=== PATIENT | female | born 1975 | race Two or more races ===

== ENCOUNTER 2016-09-01 13:56 | Emergency (ER) | payer BC, MEDICAID ==
[~2016-09-01] VITALS: Ht 157.5 cm; Wt 56.7 kg
[2016-09-01 15:10] LABS: Basophils # (auto) 0 uL; Basophils % (auto) 0.6 % (0.0-2.0); DEFINITIVE VIEW TRANSMISSION; Eosinophils # (auto) 0.3 uL; Eosinophils % (auto) 3.6 % (0.0-7.0); Hematocrit 36.8 % (36.0-46.0); Hemoglobin 12.3 g/dL (12.2-16.2); Lymphocytes # (auto) 1.3 uL; Lymphocytes % (auto) 17.5 % (10.0-50.0); Mean Corpuscular Hemoglobin 27.8 pg (28.0-32.0); Mean Corpuscular Hgb Conc. 33.5 g/dL (32.0-36.0); Mean Platelet Volume 9.3 fL (7.4-10.4); Monocytes # (auto) 0.4 uL; Monocytes % (auto) 5.4 % (0.0-12.0); Neutrophils # (auto) 5.4 uL; Neutrophils % (auto) 72.9 % (37.0-80.0); Platelet Count (auto) 310 10^3/uL (140-450); White Blood Cell 7.3 10^3/uL (4.4-10.8)
[2016-09-01 15:13] LABS: Red Cell Distribution Width 23.3 % (11.6-16.0)
[2016-09-01 15:28] LABS: Albumin 4.1 g/dL (3.4-5.0); BUN/Creatinine Ratio 18.2; Bilirubin, Total 0.2 mg/dL (0.2-1.0); Calcium 9.5 mg/dL (8.5-10.1); Potassium 3.8 mmol/L (3.5-5.1); Total Protein 7.8 g/dL (6.4-8.2)
[2016-09-01 15:54] LABS: Anisocytosis Moderate; Platelet Estimate Adequate
[2016-09-01] MEDS ORDERED: HYDROmorphone HCL 2 MG/ML VL IV ONE (17:00)
[2016-09-01] MEDS ORDERED: FLEET ENEMA(ADULT) 135 ML PR ONE ×2 (17:00)
[2016-09-01] MEDS ORDERED: SODIUM CHLORIDE 0.9% 1,000 ML IV ONE (17:00)
[2016-09-01] MEDS ORDERED: ONDANSETRON HCL 4 MG/2 ML VIAL IV ONE (17:15)
[2016-09-01] MEDS ORDERED: LORazepam 2MG/ML-1ML VIAL IV ONE (18:00)
[2016-09-01 18:36] VITALS: BP 116/72
== END 2016-09-01 19:01 | disposition home or self-care (01) ==
LOC: ER 14:02
DX: K59.03 Drug induced constipation (principal); T50.7X5A Adverse effect of analeptics and opioid receptor antagonists, initial encounter; Z88.6 Allergy status to analgesic agent; Z90.710 Acquired absence of both cervix and uterus; Y93.89 Activity, other specified; Y99.8 Other external cause status; Y92.89 Other specified places as the place of occurrence of the external cause
CPT/HCPCS: 36415; 74000; 80053; 85025; 96361; 96374; 96375; 99285; J1170; J2060; J2405; J7030

== ENCOUNTER 2024-01-08 17:38 | Emergency (ER) | payer BC ==
[~2024-01-08] VITALS: Ht 157.5 cm; Wt 72.5 kg
[2024-01-08 20:38] VITALS: TEMP 97.6
[2024-01-08] MEDS: KETOROLAC TROMETH 30 MG/ML 1ML VIAL IM ONE (21:01)
[2024-01-08] MEDS: MORPHINE SULFATE 4 MG/ML SYR/VIAL IM ONE (22:08)
[2024-01-08] MEDS: ONDANSETRON HCL 4 MG/2 ML VIAL IM ONE (22:08)
[2024-01-08 22:09] VITALS: O2SAT 100
[2024-01-08 22:34] VITALS: BP 112/59; PULSE 62; RESP 18
[2024-01-08] MEDS: CYCLOBENZAPRINE HCL 10 MG TAB PO ONE (22:34)
== END 2024-01-08 22:44 | disposition home or self-care (01) ==
LOC: ER 17:38
DX: G89.29 Other chronic pain (principal); M54.59 Other low back pain; M54.30 Sciatica, unspecified side; Z88.6 Allergy status to analgesic agent; Z90.710 Acquired absence of both cervix and uterus
CPT/HCPCS: 96372; 99284; J1885; J2270; J2405

== ENCOUNTER 2024-01-10 09:53 | Inpatient (IN) | payer BC, MEDICAID ==
[~2024-01-10] VITALS: Ht 157.5 cm; Wt 73.3 kg
[2024-01-10] MEDS ORDERED: MORPHINE SULFATE 4 MG/ML SYR/VIAL IM ONE (13:00)
[2024-01-10 13:45] VITALS: PULSE 74; RESP 12; O2SAT 100
[2024-01-10] MEDS: MORPHINE SULFATE 4 MG/ML SYR/VIAL IV ONE (14:05)
[2024-01-10 14:08] LABS: Basophils # (auto) 0 10 ^3/uL (0-0.2); Eosinophils # (auto) 0.1 10 ^3/uL (0-0.8); Eosinophils % (auto) 2.3 % (0.0-7.0); Hematocrit 38.1 % (36.0-46.0); Hemoglobin 12.9 g/dL (12.2-16.2); Lymphocytes # (auto) 1.5 10 ^3/uL (0.4-5.4); Mean Corpuscular Hemoglobin 29.8 pg (28.0-32.0); Mean Corpuscular Hgb Conc. 33.8 g/dL (32.0-36.0); Mean Corpuscular Volume 88.3 fL (80.0-100.0); Monocytes # (auto) 0.2 10 ^3/uL (0-1.3); Monocytes % (auto) 4.9 % (0.0-12.0); Neutrophils # (auto) 2.8 10 ^3/uL (1.6-8.6); Neutrophils % (auto) 59.8 % (37.0-80.0); Nucleated Red Blood Cells % 0.1 %; Red Blood Cells 4.32 10^6/uL (4.0-5.20); Red Cell Distribution Width 13.7 % (11.8-14.3); White Blood Cell 4.7 10^3/uL (4.4-10.8)
[2024-01-10 14:20] LABS: Chloride 106 mmol/L (98-107); Potassium 3.5 mmol/L (3.5-5.1); Sodium 143 mmol/L (136-145)
[2024-01-10 14:21] LABS: Anion Gap 10 (5-15); Calcium 10.3 mg/dL (8.7-10.4); Carbon Dioxide 27 mmol/L (20-30)
[2024-01-10 14:26] LABS: BUN/Creatinine Ratio 11.4 (10.0-20.0); Blood Urea Nitrogen 9 mg/dL (9-23); Glucose 91 mg/dL (74-106)
[2024-01-10] MEDS ORDERED: DOCUSATE SOD 100 MG CAP PO PRN (15:15)
[2024-01-10] MEDS ORDERED: NITROGLYCERIN 0.4 MG SL TAB SL PRN (15:15)
[2024-01-10] MEDS: SODIUM CHLORIDE 0.9% 1,000 ML IV SCH (15:38)
[2024-01-10] MEDS: MORPHINE SULFATE INJ 2 MG/ml SYRG IV PRN (16:27)
[2024-01-10] MEDS: PIPERACILLIN-TAZOB 3.375GM 100 ML IV ONE (17:10)
[2024-01-10] MEDS ORDERED: PIPERACILLIN-TAZOB 3.375GM 100 ML IV SCH (18:00)
[2024-01-10] MEDS: GABAPENTIN 100 MG CAP PO SCH (19:46)
[2024-01-10] MEDS: CYCLOBENZAPRINE HCL 10 MG TAB PO PRN (19:46)
[2024-01-10] MEDS: ONDANSETRON HCL 4 MG/2 ML VIAL IV PRN (19:46)
[2024-01-11] VITALS (9 sets, daily range): BP systolic 95–105; BP diastolic 6–71; PULSE 64–80; RESP 16–19; TEMP 97.7–98.1; O2SAT 97–98
[2024-01-11] MEDS: PIPERACILLIN-TAZOB 3.375GM 100 ML IV SCH (00:43)
[2024-01-11] MEDS ORDERED: CYCL-839 PO (03:19)
[2024-01-11] MEDS ORDERED: DULO60CA41 PO (03:19)
[2024-01-11] MEDS ORDERED: GABA-339 PO (03:19)
[2024-01-11 05:58] LABS: Basophils # (auto) 0 10 ^3/uL (0-0.2); Eosinophils # (auto) 0.1 10 ^3/uL (0-0.8); Eosinophils % (auto) 4.1 % (0.0-7.0); Hemoglobin 12.1 g/dL (12.2-16.2); Lymphocytes # (auto) 1.6 10 ^3/uL (0.4-5.4); Lymphocytes % (auto) 44.6 % (10.0-50.0); Mean Corpuscular Hemoglobin 30.1 pg (28.0-32.0); Mean Corpuscular Hgb Conc. 33.7 g/dL (32.0-36.0); Mean Corpuscular Volume 89.4 fL (80.0-100.0); Monocytes # (auto) 0.3 10 ^3/uL (0-1.3); Monocytes % (auto) 7.7 % (0.0-12.0); Neutrophils # (auto) 1.5 10 ^3/uL (1.6-8.6); Neutrophils % (auto) 42.6 % (37.0-80.0); Nucleated Red Blood Cells % 0.1 %; Red Blood Cells 4.02 10^6/uL (4.0-5.20); Red Cell Distribution Width 13.9 % (11.8-14.3); White Blood Cell 3.5 10^3/uL (4.4-10.8)
[2024-01-11 06:18] LABS: Alanine Aminotransferase 25 U/L (7-40); Albumin 4.1 g/dL (3.2-4.8); Alkaline Phosphatase 62 U/L (46-116); Anion Gap 6 (5-15); Aspartate Aminotransferase 24 U/L (13-40); Blood Urea Nitrogen 9 mg/dL (9-23); Calcium 9.8 mg/dL (8.7-10.4); Carbon Dioxide 29 mmol/L (20-30); Chloride 109 mmol/L (98-107); Glucose 86 mg/dL (74-106); Potassium 4.1 mmol/L (3.5-5.1); Sodium 144 mmol/L (136-145)
[2024-01-11 06:19] LABS: Bilirubin, Total 0.4 mg/dL (0.2-1.0); Total Protein 6.1 g/dL (5.7-8.2)
[2024-01-11] MEDS: LORazepam 2MG/ML-1ML VIAL IV ONE (13:22)
[2024-01-12 01:00] VITALS: BP 105/63; PULSE 96; RESP 18; O2SAT 97
[2024-01-12 05:00] VITALS: BP 92/52; PULSE 58; RESP 20; TEMP 97.6; O2SAT 99
[2024-01-12 08:00] VITALS: PULSE 69; RESP 19; O2SAT 95
[2024-01-12] MEDS ORDERED: CARI-277 PO (09:03)
[2024-01-12 09:04] VITALS: BP 102/70; PULSE 69; RESP 19; TEMP 98.5; O2SAT 95
[2024-01-12] MEDS ORDERED: HYDR-4798 PO (09:04)
[2024-01-12 10:49] VITALS: BP 102/70; PULSE 69; RESP 19; TEMP 98.5; O2SAT 95
[2024-01-12 12:29] VITALS: BP 99/54; PULSE 87; RESP 20; TEMP 98.4; O2SAT 93
[2024-01-12] MEDS ORDERED: PIPERACILLIN-TAZOB 3.375GM 100 ML IV SCH (14:00)
== END 2024-01-12 13:45 | disposition home or self-care (01) | DRG 532 ==
LOC: ER 09:53 → OVERFLOW 15:17 → CENTRAL 23:28
PROVIDERS: ADMIT Nurse Practitioner Family; ATTEND Family Medicine
DX: N83.202 Unspecified ovarian cyst, left side (principal); K56.7 Ileus, unspecified; M96.1 Postlaminectomy syndrome, not elsewhere classified; K52.9 Noninfective gastroenteritis and colitis, unspecified; E11.9 Type 2 diabetes mellitus without complications; Z88.6 Allergy status to analgesic agent; Z90.710 Acquired absence of both cervix and uterus; Z98.1 Arthrodesis status; Z79.899 Other long term (current) drug therapy; Z83.3 Family history of diabetes mellitus; Z87.891 Personal history of nicotine dependence
CPT/HCPCS: 36415; 72131; 72148; 74176; 76856; 80048; 80053; 82670; 83001; 85025; 96361; 96365; 96375; 96376; 97110; 97116; 97163; 97530; G0378; J2405; J2543

== ENCOUNTER 2024-03-14 15:31 | Emergency (ER) | payer MEDICAID ==
[~2024-03-14] VITALS: Ht 157.5 cm; Wt 70.9 kg
[~2024-03-14 15:31] MED LIST: CARI-277 PO; CYCL-839 PO; DULO60CA41 PO; GABA-339 PO; HYDR-4798 PO
[2024-03-14 15:48] VITALS: BP 111/70; PULSE 99; RESP 16; O2SAT 100
[2024-03-14 17:08] LABS: Urine Bacteria None Seen /hpf (None Seen)
[2024-03-14 17:24] LABS: Basophils # (auto) 0 10 ^3/uL (0-0.2); Basophils % (auto) 0.5 % (0.0-2.0); Eosinophils # (auto) 0.1 10 ^3/uL (0-0.8); Eosinophils % (auto) 1.9 % (0.0-7.0); Hematocrit 42.6 % (36.0-46.0); Hemoglobin 14.5 g/dL (12.2-16.2); Lymphocytes # (auto) 1.8 10 ^3/uL (0.4-5.4); Lymphocytes % (auto) 32.5 % (10.0-50.0); Mean Corpuscular Hemoglobin 30.4 pg (28.0-32.0); Mean Corpuscular Hgb Conc. 33.9 g/dL (32.0-36.0); Mean Corpuscular Volume 89.6 fL (80.0-100.0); Monocytes # (auto) 0.3 10 ^3/uL (0-1.3); Monocytes % (auto) 5.7 % (0.0-12.0); Neutrophils # (auto) 3.3 10 ^3/uL (1.6-8.6); Neutrophils % (auto) 59.4 % (37.0-80.0); Nucleated Red Blood Cells % 0.1 %; Platelet Count (auto) 307 10^3/uL (140-450); Red Blood Cells 4.76 10^6/uL (4.0-5.20); Red Cell Distribution Width 14.5 % (11.8-14.3); White Blood Cell 5.6 10^3/uL (4.4-10.8)
[2024-03-14 17:28] LABS: Alanine Aminotransferase 37 U/L (7-40); Alkaline Phosphatase 81 U/L (46-116)
[2024-03-14 17:29] LABS: Anion Gap 7 (5-15); Aspartate Aminotransferase 30 U/L (13-40); Bilirubin, Total 0.3 mg/dL (0.2-1.0); Blood Urea Nitrogen 12 mg/dL (9-23); Carbon Dioxide 27 mmol/L (20-31); Chloride 107 mmol/L (98-107); Glucose 91 mg/dL (74-106); Lipase 69 U/L (12-53); Potassium 4.4 mmol/L (3.5-5.1); Sodium 141 mmol/L (136-145); Total Protein 7.7 g/dL (5.7-8.2)
[2024-03-14 17:41] LABS: Urine Blood Negative /uL (Negative); Urine Clarity Clear (Clear); Urine Color Yellow (Yellow); Urine Mucus FEW (None Seen); Urine Protein, UAD Negative (Negative); Urine Specific Gravity 1.025 (1.001-1.035); Urine Urobilinogen Normal (Negative); Urine WBC 1 /hpf (0 - 5)
[2024-03-14] MEDS ORDERED: HYDR-4902 PO (18:51)
== END 2024-03-14 19:26 | disposition home or self-care (01) ==
LOC: ER 15:31
DX: R10.32 Left lower quadrant pain (principal); Z90.710 Acquired absence of both cervix and uterus; Z90.49 Acquired absence of other specified parts of digestive tract; Z98.890 Other specified postprocedural states; Z88.6 Allergy status to analgesic agent; Z79.899 Other long term (current) drug therapy
CPT/HCPCS: 36415; 74176; 80053; 81001; 83690; 85025

== ENCOUNTER 2024-04-08 10:06 | Emergency (ER) | payer MEDICAID ==
[~2024-04-08] VITALS: Ht 157.5 cm; Wt 70.0 kg
[~2024-04-08 10:06] MED LIST changes: +HYDR-4902 PO
[2024-04-08 10:39] VITALS: BP 108/73; PULSE 94; RESP 18; TEMP 97.8; O2SAT 99
[2024-04-08] MEDS ORDERED: HYDR-4902 PO (11:49)
== END 2024-04-08 11:55 | disposition home or self-care (01) ==
LOC: ER 10:06
DX: S22.32XA Fracture of one rib, left side, initial encounter for closed fracture (principal); Z90.49 Acquired absence of other specified parts of digestive tract; Z90.710 Acquired absence of both cervix and uterus; Z79.899 Other long term (current) drug therapy; Z88.6 Allergy status to analgesic agent; W18.39XA Other fall on same level, initial encounter; Y93.89 Activity, other specified; Y92.89 Other specified places as the place of occurrence of the external cause; Y99.8 Other external cause status
CPT/HCPCS: 71101

== ENCOUNTER 2024-04-16 11:48 | Emergency (ER) | payer MEDICAID ==
[~2024-04-16] VITALS: Ht 157.5 cm; Wt 70.0 kg
[2024-04-16] MEDS: KETOROLAC TROMETH 60MG/2ML VIAL IM ONE (12:00)
--- NOTE | 2024-04-16 12:03 | ED.PDOC ---
History of Present Illness HPI Comments 48-year-old female presents with a chief complaint of request for pain management. Patient reports that she has a pinched nerve in her back and is awaiting back surgery. Patient is requesting pain management. No other symptoms or modifying factors present at this time. Time Seen by MD: 11:57 Primary Care Provider: YAAKOV Cooper Notes: Medications, Allergies Allergies: Coded Allergies: Ibuprofen (Verified Allergy, Severe, 09/01/16) Home Meds Active Scripts Hydrocodone-Acetaminophen (Hydrocodone Bitartrate/AC 5-325 mg) 1 Tab Tab, 1 TAB PO Q6HP PRN for 7 Days, #28 TAB 0 Refills Prov:SARITHA SHEA EMBROIDERY ASSISTANT 04/08/24 Hydrocodone-Acetaminophen (Hydrocodone Bitartrate/AC 5-325 mg) 1 Tab Tab, 1 TAB PO Q8HP PRN for 5 Days, #15 TAB Prov:JIMMY KWAN MD 03/14/24 Hydrocodone-Acetaminophen (Hydrocodone Bitartrate/AC 10-325 mg) 1 Tab Tab, 1 TAB PO TID PRN, #60 TAB Prov:WILLIE VÁSQUEZ MD 01/12/24 Reported Medications Carisoprodol (Soma) 350 Mg Tab, 350 MG PO TID, #60 TAB 01/12/24 Duloxetine Hcl (Cymbalta) 60 Mg Cap, 1 CAP PO DAILY, #90 CAP 3 Refills 01/11/24 Cyclobenzaprine Hcl (Cyclobenzaprine Hcl) 10 Mg Tab, 10 MG PO PRN, TAB 01/11/24 Gabapentin (Gabapentin) 600 Mg Tab, 600 MG PO BID for 30 Days, MG 01/11/24 Information Source: Patient Severity: Moderate Timing: Days Duration: Since onset Prehospital treatment: None Past Medical History PAST MEDICAL HISTORY: Denies Surgical History: Appendectomy, 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 Family History Family History: Unobtainable Social History Smoker: Non-Smoker Alcohol: Denies ETOH Use Drugs: Denies Drug Use Lives In: Home Constitutional: denies: chills, diaphoresis, fatigue, fever, malaise, sweats, weakness, others EENTM: denies: blurred vision, double vision, ear bleeding, ear discharge, ear drainage, ear pain, ear ringing, eye pain, eye redness, hearing loss, mouth pain, mouth swelling, nasal discharge, nose bleeding, nose congestion, nose pain, photophobia, tearing, throat pain, throat swelling, voice changes, others Respiratory: denies: cough, hemoptysis, orthopnea, SOB at rest, shortness of breath, SOB with excertion, stridor, wheezing, others Cardiovascular: denies: chest pain, dizzy spells, diaphoresis, Dyspnea on exertion, edema, irregular heart beat, left arm pain, lightheadedness, palpitations, PND, syncope, others Gastrointestinal: denies: abdomen distended, abdominal pain, blood streaked bowels, constipated, diarrhea, dysphagia, difficulty swallowing, hematemesis, melena, nausea, poor appetite, poor fluid intake, rectal bleeding, rectal pain, vomiting, others Genitourinary: denies: abnormal vagina bleeding, burning, dyspareunia, dysuria, flank pain, frequency, hematuria, incontinence, pain, , vagina discharge, urgency, others Neurological: denies: dizziness, fainting, headache, left sided numbness, left sided weakness, numbness, paresthesia, pre-existing deficit, right sided numbness, right sided weakness, seizure, speech problems, tingling, tremors, weakness, others Musculoskeletal: reports: muscle pain; denies: back pain, gout, joint pain, joint swelling, muscle stiffness, neck pain, others Integumetry: denies: bruises, change in color, change in hair/nails, dryness, laceration, lesions, lumps, rash, wounds, others Allergic/Immunocompromised: denies: Difficulty Healing, Frequent Infections, Hives, Itching, others Hematologic/Lymphatic: denies: anemia, blood clots, easy bleeding, easy bruising, swollen glands, others Endocrine: denies: excessive hunger, excessive sweating, excessive thirst, excessive urination, flushing, intolerance to cold, intolerance to heat, unexplained weight gain, unexplained weight loss, others Psychiatric: denies: anxiety, bipolar disorder, depression, hopeless, panic disorder, schizophrenia, sleepless, suicidal, others All Other Systems: Reviewed and Negative Physical Exam General Appearance: Mild Distress, Normal HEENT: Normal ENT Inspection, Pharynx Normal, TMs Normal Neck: Full Range of Motion, Non-Tender, Normal, Normal Inspection Respiratory: Chest Non-Tender, Lungs Clear, No Accessory Muscle Use, No Respiratory Distress, Normal Breath Sounds Cardiovascular: No Edema, No JVD, No Murmur, No Gallop, Normal Peripheral Pulses, Regular Rate/Rhythm Breast Exam: Deferred Gastrointestinal: No Organomegaly, Non Tender, No Pulsatile Mass, Normal Bowel Sounds, Soft Genitalia: Deferred Pelvic: Deferred Rectal: Deferred Extremities: No calf tenderness, Normal capillary refill, Normal inspection, Normal range of motion, Non-tender, No pedal edema Musculoskeletal : Apperance: Normal Neurologic: Alert, rotary cutter operator II-XII nml as Tested, No Motor Deficits, Normal Affect, Normal Mood, No Sensory Deficits Cerebellar Function: NOT DONE Reflexes: NOT DONE Skin: Dry, Normal Color, Warm Peripheral Pulses: 3+ Radial (R), 3+ Radial (L) Lymphatic: No Adenopathy Was a procedure done? Was a procedure done?: No Differential Dx Considerations may include: Degenerative disc disease Muscle strain X-Ray, Labs, Meds, VS Vital Signs Date Time Temp Pulse Resp B/P (MAP) Pulse Ox O2 Delivery O2 Flow Rate FiO2 04/16/24 12:05 98.5 102 16 126/83 (97) 93 Patient alert pain Chronic symptoms. Vitals stable. Answering all questions, saturation pristine on room air. No leg swelling. Denies chest pain. No shortness a breath. Came in for pain medication. Heart rate on examination was within normal limits. She is nervous. She does complain of pain. She has pain medication at home. Reviewed her previous visit. Does not meet any criteria. No leg discoloration. No accessory muscle use. She has scheduled surgery for her back. She was given pain medication. Explained to the patient. Was told to follow up with her primary care physician. Was told to come back if there is any problem. Time of 1ST Reevaluation: 12:27 Reevaluation 1ST: Improved Patient Education/Counseling: Diagnosis, Treatment, Prognosis Family Education/Counseling: No Family Present Departure 1 Departure Time of Disposition: 12:51 Impression: Primary Impression: Acute exacerbation of chronic low back pain Disposition: 01 HOME / SELF CARE / HOMELESS Condition: Good Discharged With: Self Critical Care Note Critical Care Time?: No Stability Stability form required: No Heart Score Heart Score: Heart Score Response (Comments) Value History N/A 0 EKG N/A 0 Age N/A 0 Risk Factors N/A 0 Troponin N/A 0 Total 0 I personally scribed for ROXANE CASTILLO MD ([email or web address]) on 04/16/24 at 12:03. Electronically submitted by Carlos Manuel Brenner ([email or web address]). ROXANE CASTILLO MD Apr 16, 2024 12:03
[2024-04-16 13:03] VITALS: BP 106/68; PULSE 94; RESP 14; TEMP 97.6; O2SAT 95
[2024-04-16] MEDS: HYDROcodone-ACET 10/325MG TAB PO ONE (13:10)
== END 2024-04-16 13:19 | disposition home or self-care (01) ==
LOC: ER 11:57
DX: M54.50 Low back pain, unspecified (principal); G89.29 Other chronic pain; Z79.899 Other long term (current) drug therapy; Z88.6 Allergy status to analgesic agent; Z90.49 Acquired absence of other specified parts of digestive tract; Z90.710 Acquired absence of both cervix and uterus
CPT/HCPCS: J1885

== ENCOUNTER 2024-05-13 14:01 | Emergency (ER) | payer MEDICAID ==
[~2024-05-13] VITALS: Ht 157.5 cm; Wt 79.7 kg
[2024-05-13 14:10] VITALS: BP 101/57; PULSE 101; RESP 16; O2SAT 97
[2024-05-13] MEDS ORDERED: GABA300T4 PO (14:35)
[2024-05-13] MEDS ORDERED: PROM1SOL4 PO (14:35)
--- NOTE | 2024-05-13 14:36 | ED.PDOC ---
Musculoskeletal HPI Comments Patient presents with numbness tingling to the 1st 2nd and 3rd distal phalanx. Onto started weeks ago and symptoms worsened with movement. Patient reports as burning sensation. Currently taking 600 mg of gabapentin b.i.d. with some improvement. No other complaint or concern Also complains of a nonproductive cough x1 day Denies fevers chills night sweats unintentional weight loss Denies persistent chest pain, shortness of breath, leg swelling Denies history of asthma nor any breathing conditions Denies history of pneumonia Denies recent international travel Chief Complaint: Upper Extremity Time Seen by MD: 14:09 Primary Care Provider: YAAKOV Reviewed Notes: Nurses Notes, Medications, Allergies Allergies: Coded Allergies: Ibuprofen (Verified Allergy, Severe, 09/01/16) Home Meds Active Scripts Hydrocodone-Acetaminophen (Hydrocodone Bitartrate/AC 5-325 mg) 1 Tab Tab, 1 TAB PO Q6HP PRN for 7 Days, #28 TAB 0 Refills Prov:SARITHA SHEA ESTIMATOR PAPERBOARD BOXES 04/08/24 Hydrocodone-Acetaminophen (Hydrocodone Bitartrate/AC 5-325 mg) 1 Tab Tab, 1 TAB PO Q8HP PRN for 5 Days, #15 TAB Prov:JIMMY KWAN MD 03/14/24 Hydrocodone-Acetaminophen (Hydrocodone Bitartrate/AC 10-325 mg) 1 Tab Tab, 1 TAB PO TID PRN, #60 TAB Prov:WILLIE VÁSQUEZ MD 01/12/24 Reported Medications Carisoprodol (Soma) 350 Mg Tab, 350 MG PO TID, #60 TAB 01/12/24 Duloxetine Hcl (Cymbalta) 60 Mg Cap, 1 CAP PO DAILY, #90 CAP 3 Refills 01/11/24 Cyclobenzaprine Hcl (Cyclobenzaprine Hcl) 10 Mg Tab, 10 MG PO PRN, TAB 01/11/24 Gabapentin (Gabapentin) 600 Mg Tab, 600 MG PO BID for 30 Days, MG 01/11/24 Information Source: Patient Mode of Arrival: Ambulatory Past Medical History PAST MEDICAL HISTORY: Denies Surgical History: Appendectomy, 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 Family History Family History: Reviewed,noncontributory to illness, Unobtainable Social History Smoker: Non-Smoker Alcohol: Denies ETOH Use Drugs: Denies Drug Use Lives In: Home All Other Systems: Reviewed and Negative (Per HPI) Physical Exam General Appearance: No Apparent Distress, Normal HEENT: Normal ENT Inspection, Pharynx Normal, TMs Normal Neck: Full Range of Motion, Non-Tender, Normal, Normal Inspection Respiratory: Chest Non-Tender, Lungs Clear, No Accessory Muscle Use, No Respiratory Distress, Normal Breath Sounds Cardiovascular: No Edema, No JVD, No Murmur, No Gallop, Normal Peripheral Pulse s, Regular Rate/Rhythm Breast Exam: Deferred Gastrointestinal: No Organomegaly, Non Tender, No Pulsatile Mass, Normal Bowel Sounds, Soft Genitalia: Deferred Pelvic: Deferred Rectal: Deferred Extremities: No calf tenderness, Normal capillary refill, Normal inspection, Normal range of motion, Non-tender, No pedal edema Musculoskeletal : Apperance: Normal Neurologic: Alert, self 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 Was a procedure done?: No Differential Diagnosis EXT Differential Diagnosis: Other X-Ray, Labs, Meds, VS Vital Signs Date Time Temp Pulse Resp B/P (MAP) Pulse Ox O2 Delivery O2 Flow Rate FiO2 05/13/24 14:10 97.9 101 16 101/57 (72) 97 X-Ray, Labs, Meds, VS Comment After ROS physical examination no red flags. Patient advised symptoms do not represent a serious medical emergency. Symptomatic care provided. 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 Additional Impression: Cough Qualified Codes: R05.1 - Acute cough Disposition: 01 HOME / SELF CARE / HOMELESS Condition: Stable e-Prescriptions Gabapentin (Once-Daily) (Gabapentin) 300 Mg Tab 900 MG PO TID for 30 Days, #270 TAB 0 Refills Prov: SARITHA SHEA ESTIMATOR PAPERBOARD BOXES 05/13/24 Promethazine-Dm (Promethazine Dm 6.25-15 mg/5Ml) 1 Yarely Yarely 5 ML PO TID for 10 Days, #150 ML 0 Refills Prov: SARITHA SHEA ESTIMATOR PAPERBOARD BOXES 05/13/24 Discharged With: Self Critical Care Note Critical Care Time?: No Stability Stability form required: No Heart Score Heart Score: Heart Score Response (Comments) Value History N/A 0 EKG N/A 0 Age N/A 0 Risk Factors N/A 0 Troponin N/A 0 Total 0 SARITHA SHEA NP May 13, 2024 14:35
== END 2024-05-13 15:07 | disposition home or self-care (01) ==
LOC: ER 14:01
DX: G62.9 Polyneuropathy, unspecified (principal); Z79.899 Other long term (current) drug therapy; Z88.6 Allergy status to analgesic agent; Z90.49 Acquired absence of other specified parts of digestive tract; Z90.710 Acquired absence of both cervix and uterus

== ENCOUNTER 2024-12-31 01:26 | Emergency (ER) | payer MEDICAID ==
[~2024-12-31] VITALS: Ht 157.5 cm; Wt 76.8 kg
[~2024-12-31 01:26] MED LIST changes: +GABA300T4 PO; +PROM1SOL4 PO
--- NOTE | 2024-12-31 01:57 | ED.PDOC ---
Back pain HPI HPI Comments PT C/O 03/21 BACK PAIN TO LOWER BACK. PT EXPLAINS THAT SHE HAS HAD MULTIPLE SURGERIES ON HER BACK AND HAS CHRONIC BACK PAIN. PT HAS BEEN UNABLE TO SET UP AN APPOINTMENT WITH PAIN MANAGEMENT AND THIS MORNING HER PAIN HAS BECOME UNBEARABLE. PT A&OX4, VSS, RR EVEN AND UNLABORED ON RA. DENIES NUMBNESS, WEAKNESS, NEW INJURY, LOSS OF BOWEL BLADDER CONTROL, OR SADDLE ANESTHESIA. Time Seen by MD: 01:38 Primary Care Provider: YAAKOV Reviewed Notes: Nurses Notes, Medications, Allergies Allergies: Coded Allergies: Ibuprofen (Verified Allergy, Severe, 09/01/16) Home Meds Active Scripts Methylprednisolone (Medrol Dosepak) 4 Mg [place], 4 MG PO UD for 6 Days, #21 TAB UAD Prov:DENA CARTER FRONT OFFICE MEDICAL ASSISTANT 12/31/24 Gabapentin (Once-Daily) (Gabapentin) 300 Mg Tab, 900 MG PO TID for 30 Days, #270 TAB 0 Refills Prov:SARITHA SHEA NP 05/13/24 Promethazine-Dm (Promethazine Dm 6.25-15 mg/5Ml) 1 Yarely Yarely, 5 ML PO TID for 10 Days, #150 ML 0 Refills Prov:SARITHA SHEA HOT BILLET SHEAR OPERATOR 05/13/24 Hydrocodone-Acetaminophen (Hydrocodone Bitartrate/AC 5-325 mg) 1 Tab Tab, 1 TAB PO Q6HP PRN for 7 Days, #28 TAB 0 Refills Prov:SARITHA SHEA NP 04/08/24 Hydrocodone-Acetaminophen (Hydrocodone Bitartrate/AC 5-325 mg) 1 Tab Tab, 1 TAB PO Q8HP PRN for 5 Days, #15 TAB Prov:JIMMY KWAN MD 03/14/24 Hydrocodone-Acetaminophen (Hydrocodone Bitartrate/AC 10-325 mg) 1 Tab Tab, 1 TAB PO TID PRN, #60 TAB Prov:WILLIE VÁSQUEZ MD 01/12/24 Reported Medications Carisoprodol (Soma) 350 Mg Tab, 350 MG PO TID, #60 TAB 01/12/24 Duloxetine Hcl (Cymbalta) 60 Mg Cap, 1 CAP PO DAILY, #90 CAP 3 Refills 01/11/24 Cyclobenzaprine Hcl (Cyclobenzaprine Hcl) 10 Mg Tab, 10 MG PO PRN, TAB 01/11/24 Gabapentin (Gabapentin) 600 Mg Tab, 600 MG PO BID for 30 Days, MG 01/11/24 Information Source: Patient Past Medical History PAST MEDICAL HISTORY: Denies Surgical History: Appendectomy, 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 Family History Family History: Reviewed,noncontributory to illness, Unobtainable Social History Smoker: Non-Smoker Alcohol: Denies ETOH Use Drugs: Denies Drug Use Lives In: Home Constitutional: denies: chills, diaphoresis, fatigue, fever, malaise, sweats, weakness, others EENTM: denies: blurred vision, double vision, ear bleeding, ear discharge, ear drainage, ear pain, ear ringing, eye pain, eye redness, hearing loss, mouth pain, mouth swelling, nasal discharge, nose bleeding, nose congestion, nose pain, photophobia, tearing, throat pain, throat swelling, voice changes, others Respiratory: denies: cough, hemoptysis, orthopnea, SOB at rest, shortness of breath, SOB with excertion, stridor, wheezing, others Gastrointestinal: denies: abdomen distended, abdominal pain, blood streaked bowels, constipated, diarrhea, dysphagia, difficulty swallowing, hematemesis, melena, nausea, poor appetite, poor fluid intake, rectal bleeding, rectal pain, vomiting, others Genitourinary: denies: abnormal vagina bleeding, burning, dyspareunia, dysuria, flank pain, frequency, hematuria, incontinence, pain, , vagina discharge, urgency, others Neurological: denies: dizziness, fainting, headache, left sided numbness, left sided weakness, numbness, paresthesia, pre-existing deficit, right sided numbness, right sided weakness, seizure, speech problems, tingling, tremors, weakness, others Musculoskeletal: reports: back pain, joint pain; denies: gout, joint swelling, muscle pain, muscle stiffness, neck pain, others Integumetry: denies: bruises, change in color, change in hair/nails, dryness, laceration, lesions, lumps, rash, wounds, others Allergic/Immunocompromised: denies: Difficulty Healing, Frequent Infections, Hives, Itching, others Hematologic/Lymphatic: denies: anemia, blood clots, easy bleeding, easy bruising, swollen glands, others Endocrine: denies: excessive hunger, excessive sweating, excessive thirst, excessive urination, flushing, intolerance to cold, intolerance to heat, unexplained weight gain, unexplained weight loss, others Psychiatric: denies: anxiety, bipolar disorder, depression, hopeless, panic disorder, schizophrenia, sleepless, suicidal, others Physical Exam General Appearance: No Apparent Distress, Normal HEENT: Pharynx Normal Neck: Full Range of Motion, Non-Tender Respiratory: Lungs Clear, No Respiratory Distress, Normal Breath Sounds Cardiovascular: No Murmur, Normal Peripheral Pulses, Regular Rate/Rhythm Breast Exam: Deferred Gastrointestinal: Non Tender, Soft Genitalia: Deferred Pelvic: Deferred Rectal: Deferred Extremities: Normal capillary refill, Normal inspection, Normal range of motion, Non-tender, No pedal edema Musculoskeletal : Location: Bilateral Extremity Location: Back (MODERATE TENDERNESS PALPATED OVER LOWER BACK MUSCULATURE BILATERAL. TENDERNESS PALPATED OVER L1 THROUGH L3 LUMBAR SPINE WITHOUT CREPITUS OR STEP-OFFS. STRENGTH SENSORY MOTION INTACT NEGATIVE STRAIGHT LEG RAISE BILATERAL POSITIVE PEDAL PULSES) Apperance: Normal Neurologic: Alert, No Motor Deficits, Normal Affect, Normal Mood, No Sensory Deficits Cerebellar Function: Normal Reflexes: Normal Skin: Dry, Normal Color, Warm Lymphatic: No Adenopathy Was a procedure done? Was a procedure done?: No Back Pain Differential Dx Differential Diagnosis: Fracture, Musculoskeletal Pain, Strain X-Ray, Labs, Meds, VS Vital Signs Date Time Temp Pulse Resp B/P (MAP) Pulse Ox O2 Delivery O2 Flow Rate FiO2 12/31/24 02:58 83 15 99/67 12/31/24 02:55 98.5 83 12 99/ (78) 95 98.5 12/31/24 02:17 97.8 103 18 139/99 (112) 95 97.8 12/31/24 02:17 103 18 95 Room Air* 0 21 12/31/24 02:08 103 18 139/99 12/31/24 01:39 97.8 103 18 139/99 (112) 95 97.8 Current Medications Medications (Trade) Dose Ordered Sig/Nagi Route Start Time Stop Time Status Last Admin Dexamethasone Sodium Phosphate (Decadron Injection) 10 mg ONCE ONCE IM 12/31/24 02:00 12/31/24 02:01 DC 12/31/24 02:08 Morphine Sulfate 4 mg ONCE ONCE IM 12/31/24 02:00 12/31/24 02:01 DC 12/31/24 02:08 X-Ray, Labs, Meds, VS Comment Treated with Decadron 10 mg IM in morphine 4 mg IM reports improvement in pain requesting discharge at this time. We will trial of Medrol Dosepak advised to take medication as prescribed side effects discussed. Advised to follow up with her pain management as scheduled. Alternate between ice and heat. ER return precautions given increasing pain, weakness, numbness, loss of bowel bladder control or saddle anesthesia. Patient agrees with discharge plan of care indicates understanding. Time of 1ST Reevaluation: 01:57 Reevaluation 1ST: Unchanged Time of 2ND Reevaluation: 02:45 Reevaluation 2ND: Improved Patient Education/Counseling: Diagnosis, Treatment, Prognosis, Need For Follow Up Family Education/Counseling: Diagnosis, Treatment, Prognosis, Need For Follow Up SEPSIS Sepsis Screen Vital Signs Date Time Temp Pulse Resp B/P (MAP) Pulse Ox O2 Delivery O2 Flow Rate FiO2 12/31/24 02:58 83 15 99/67 12/31/24 02:55 98.5 83 12 99/67 (78) 95 98.5 12/31/24 02:17 97.8 103 18 139/99 (112) 95 97.8 12/31/24 02:17 103 18 95 Room Air* 0 21 12/31/24 02:08 103 18 139/99 12/31/24 01:39 97.8 103 18 139/99 (112) 95 97.8 Medications Medications Dose Ordered Sig/Nagi Route Start Time Stop Time Status Last Admin Dose Admin Dexamethasone Sodium Phosphate 10 mg ONCE ONCE IM 12/31/24 02:00 12/31/24 02:01 DC 12/31/24 02:08 Morphine Sulfate 4 mg ONCE ONCE IM 12/31/24 02:00 12/31/24 02:01 DC 12/31/24 02:08 Departure 1 Departure Time of Disposition: 02:45 Impression: Primary Impression: Acute exacerbation of chronic low back pain Disposition: 01 HOME / SELF CARE / HOMELESS Condition: Stable e-Prescriptions Methylprednisolone (Medrol Dosepak) 4 Mg [place] 4 MG PO UD for 6 Days, #21 TAB UAD Prov: DENA CARTER 12/31/24 Discharged With: Relative (Mother) Critical Care Note Critical Care Time?: No Stability Stability form required: No DENA CARTER 22, 2025 01:57
[2024-12-31] MEDS: MORPHINE SULFATE 4 MG/ML SYR/VIAL IM ONE (02:08)
[2024-12-31 02:17] VITALS: PULSE 103; RESP 18; O2SAT 95
[2024-12-31] MEDS ORDERED: METH4PAK PO (02:45)
[2024-12-31 02:55] VITALS: TEMP 98.5; O2SAT 95
[2024-12-31 02:58] VITALS: BP 99/67; PULSE 83; RESP 15
== END 2024-12-31 02:55 | disposition home or self-care (01) ==
LOC: ER 01:26
DX: G89.29 Other chronic pain (principal); Z90.710 Acquired absence of both cervix and uterus; Z90.49 Acquired absence of other specified parts of digestive tract; Z90.89 Acquired absence of other organs; Z88.6 Allergy status to analgesic agent; Z79.899 Other long term (current) drug therapy; Z79.52 Long term (current) use of systemic steroids
CPT/HCPCS: 96372; 99284; J1100; J2270

== ENCOUNTER 2025-05-31 15:32 | Emergency (ER) | payer MEDICAID ==
[~2025-05-31] VITALS: Ht 157.5 cm; Wt 68.3 kg
--- NOTE | 2025-05-31 15:56 | ED.PDOC ---
SOB-HPI HPI Comments HPI: Poor Historian. 49-year-old female presents to emergency department for evaluation of nonspecific cough with the associated wheezing and shortness of breath when she coughs. Symptoms has been going on for one-week. Patient has a associated generalized fatigue at nighttime with the these coughs. She has been using her inhaler at home frequently. Denies any fever nausea or vomiting abdominal pain chest pain or runny nose. Past Medical History: Asthma, chronic hip pain, Past Surgical History: Back Surgery REVIEW OF SYSTEMS: CONSTITUTIONAL: Denies acute: fever, diaphoresis, chills, HEAD: Denies acute: headache, photophobia Eyes: Denies acute: Double vision, vision loss, eye pain, eye discharge. EARS: Denies acute: tinnitus, hearing loss, ear discharge, ear pain, THROAT: Denies acute: sore throat, swelling, difficulty swallowing , pain with swallowing, change in voice. NECK: Denies acute: neck pain, neck swelling, stiff neck. HEART: Denies acute : chest pain, palpitations, LUNGS: Denies acute: hemoptysis ABDOMEN: Denies acute: abdominal pain, Nausea, Vomiting, diarrhea, melena , hematemesis, hematochezia SKIN: Denies acute: rash, redness, lesions, itchiness. EXTREMITIES: Denies acute: calf pain, numbness, tingling, weakness, denies pain in extremity. Denies acute: Low back pain. Neuro: Denies acute: focal neurological deficit, motor or sensory focal neurological deficit, tremors, seizure like activity, confusion, dizziness, change in mental status, loss of bowel or bladder function, cauda equina like symptoms. : Denies acute: dysuria, hematuria, flank pain, increase in urinary frequency. PSYCH: Denies acute: hallucination, suicidal ideation, homicidal ideation. FEMALE: Denies acute: abnormal vaginal bleeding, foul odor, unusual discharge. PHYSICAL EXAM: General: -----no---acute distress, awake and alert. Head: normocephalic, atraumatic. No raccoon's eyes, no cruz sign. Neck: supple, trachea is midline, no swelling. Throat: Normal phonation. Eyes:, no erythema, no purulent discharge, no proptosis, no icterus. Heart: regular rate, regular rhythm, no significant murmur appreciated. Lungs: no apparent respiratory distress, Able to speak in full sentences. slight b/l wheezing, mild rhonchi, no crackles. No stridors Abdomen: non tender to palpation, non distended, soft, no guarding, no rebound, + bowel sounds. Neuro: Awake, Alert, oriented to name, self, situation, follows commands GCS=15. Speech is normal. Skin: no petechia, no purpura, no cyanosis, non-pale, not jaundice. Lower extremities: --no - Pitting edema no deformity, no focal swelling, no calf TTP. Makes eye contact. moves all four extremities. Face: no apparent facial droop. Ambulating in the ED independently. ED COURSE: DISCLAIMER: This medical document was created using an electronic medical record system with voice recognition software and computerized dictation system. Although this document has been carefully reviewed, there might still be some phonetic and typographical errors. Occasional wrong-word or "sound-alike" substitutions may have occurred due to the inherent limitations of voice recognition software. These areas are purely typographical due to imperfections of the software programs and do not reflect any compromise in the patient's medical care. Please read the chart carefully and recognize, using context, where these substitutions have occurred. Chief Complaint: Shortness of Breath Time Seen by MD: 15:47 Primary Care Provider: YAAKOV Cooper notes: Allergies Information Source: Patient Mode of Arrival: Ambulatory Past Medical History PAST MEDICAL HISTORY: Denies Surgical History: Appendectomy, 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 [employer]IST History: Ovarian Cysts Family History Family History: Reviewed,noncontributory to illness, Unobtainable Social History Smoker: Non-Smoker Alcohol: Denies ETOH Use Drugs: Denies Drug Use Lives In: Home Was a procedure done? Was a procedure done?: No Differential Dx Differential Diagnosis: Bronchitis, CHF, Pulmonary Embolism, URI X-Ray, Labs, Meds, VS Vital Signs Date Time Temp Pulse Resp B/P (MAP) Pulse Ox O2 Delivery O2 Flow Rate FiO2 05/31/25 18:55 98.3 90 16 104/73 (83) 98 98.3 05/31/25 17:46 18 Room Air 05/31/25 16:30 24 95 Room Air* 0 21 21 05/31/25 15:40 97.6 115 18 116/61 97 97.6 Lab Test 05/31/25 16:07 Range/Units White Blood Count 5.7 4.4-10.8 10^3/uL Red Blood Count 4.64 4.0-5.20 10^6/uL Hemoglobin 13.9 12.2-16.2 g/dL Hematocrit 40.5 36.0-46.0 % Mean Corpuscular Volume 87.3 80.0-100.0 fL Mean Corpuscular Hemoglobin 29.9 28.0-32.0 pg Mean Corpuscular Hemoglobin Concent 34.3 32.0-36.0 g/dL Red Cell Distribution Width 13.5 11.8-14.3 % Platelet Count 357 140-450 10^3/uL Mean Platelet Volume 8.2 6.9-10.8 fL Neutrophils (%) (Auto) 58.9 37.0-80.0 % Lymphocytes (%) (Auto) 32.7 10.0-50.0 % Monocytes (%) (Auto) 6.3 0.0-12.0 % Eosinophils (%) (Auto) 1.3 0.0-7.0 % Basophils (%) (Auto) 0.8 0.0-2.0 % Neutrophils # (Auto) 3.4 1.6-8.6 10 ^3/uL Lymphocytes # (Auto) 1.9 0.4-5.4 10 ^3/uL Monocytes # (Auto) 0.4 0-1.3 10 ^3/uL Eosinophils # (Auto) 0.1 0-0.8 10 ^3/uL Basophils # (Auto) 0 0-0.2 10 ^3/uL Nucleated Red Blood Cells 0.0 % Sodium Level 145 136-145 mmol/L Potassium Level 3.5 3.5-5.1 mmol/L Chloride Level 110 H 98-107 mmol/L Carbon Dioxide Level 24 20-31 mmol/L Anion Gap 11 5-15 Blood Urea Nitrogen 9 9-23 mg/dL Creatinine 0.89 0.550-1.02 mg/dL Glomerular Filtration Rate Calc 78 >90 mL/min BUN/Creatinine Ratio 10.1 10.0-20.0 Serum Glucose 101 74-106 mg/dL Calcium Level 10.0 8.7-10.4 mg/dL Total Bilirubin 0.3 0.2-1.0 mg/dL Aspartate Amino Transferase (AST) 19 13-40 U/L Alanine Aminotransferase (ALT) 18 7-40 U/L Alkaline Phosphatase 75 46-116 U/L Troponin I High Sensitivity < 3 L </=34 ng/L Total Protein 7.5 5.7-8.2 g/dL Albumin 4.8 3.2-4.8 g/dL Current Medications Medications (Trade) Dose Ordered Sig/Nagi Route Start Time Stop Time Status Last Admin Albuterol (Ventolin Medneb) 2.5 mg ONCE ONCE NEB 05/31/25 16:00 05/31/25 16:01 DC 05/31/25 16:30 Ipratropium Turner (Atrovent Medneb) 1 mg ONCE ONCE NEB 05/31/25 16:00 05/31/25 16:01 DC 05/31/25 16:30 Methylprednisolone Sodium Succinate (Solu Medrol) 125 mg ONCE ONCE IM 05/31/25 16:00 05/31/25 16:01 DC 05/31/25 18:15 [place] [id number] Ph: [phone] DIAGNOSTIC IMAGING Diagnostic Imaging Report : [id number] Signed PATIENT: SARITA THORNTON ACCT: [id number] UNIT: [id number] : 1975 LOC: ER ROOM / BED: / AGE / SEX: 49 / F ADM STATUS: REG ER SERVICE [id number] ORDERING PHYSICIAN: JUNE CARRILLO DO PROCEDURE(s): CXRP - CHEST PORTABLE REASON: sob/cough ORDER NUMBER(s): [id number], ACCESSION NUMBER(s): [id number] INDICATION: sob/cough TECHNIQUE: Frontal view of the chest. COMPARISON: XY L RIB X RAY on DOS: 04/08/24 FINDINGS: . The heart and mediastinal contours are grossly unremarkable. There is no evidence of pleural disease. The lungs are clear. The bony structures of the chest are intact without fracture. IMPRESSION: 1. No evidence of acute disease. ATED BY: HARPAL RANKIN MD DICTATED DATE/TIME: 05/31/251619 SIGNED BY: HARPAL RANKIN MD SIGNED DATE/TIME: 05/31/251619 CC: Time of 1ST Reevaluation: 16:30 Reevaluation 1ST: Unchanged Patient Education/Counseling: Diagnosis, Treatment Family Education/Counseling: No Family Present Departure 1 Departure Time of Disposition: 17:15 Impression: Primary Impression: Bronchitis Additional Impression: Asthma exacerbation Disposition: 01 HOME / SELF CARE / HOMELESS Condition: Stable Additional Instructions: Additional instructions: Please read all instructions provided in this packet carefully. You MUST follow-up with your primary care/family doctor in 1 to 2 days. If you are unable to see your primary care/family doctor, please return to our emergency room for re-assessment and re-evaluation in 1 to 2 days. Return to the emergency room here in our facility or to the nearest ER [facility] if your symptoms change or worsen. CONSULTATIONS: you MUST Follow-up for consultation as soon as possible with: -pulmonology in 1-2 days. Please call for appointment. You MUST call the consultants office yourself to make an appointment. You may need to arrange that through your insurance and/or your primary/family doctor. If you are unable to see the weight loss consultant in 1 to 2 days, you must return to our emergency room (or any other ER of your choice) for re-assessment and re- evaluation. Adequate fluid hydration. Although you have been discharged from the Emergency Department, this does not mean that you have a "clean bill of health". No definitive diagnosis for your symptoms has been made today. It is possible that you are in the process of developing a serious illness. This is why you must return to the ED without fail if any new or worsening symptoms develop. e-Prescriptions Prednisone (Prednisone) 20 Mg Tab 40 MG PO DAILY for 5 Days, #10 TAB Prov: JUNE CARRILLO DO 05/31/25 Azithromycin (Zithromax Tri-[place]) 500 Mg Tab 500 MG PO DAILY for 6 Days, #6 TAB Prov: JUNE CARRILLO DO 05/31/25 Discharged With: Self Critical Care Note Critical Care Time?: No I personally scribed for JUNE CARRILLO DO ([email or web address]) on 05/31/25 at 22:19. Electronically submitted by Ritika Cooper ([facility]). JUNE CARRILLO DO May 31, 2025 15:56
--- NOTE | 2025-05-31 16:22 | DVH ---
INDICATION: sob/cough TECHNIQUE: Frontal view of the chest. COMPARISON: XY L RIB X RAY on DOS: 04/08/24 FINDINGS: . The heart and mediastinal contours are grossly unremarkable. There is no evidence of pleural disease. The lungs are clear. The bony structures of the chest are intact without fracture. IMPRESSION: 1. No evidence of acute disease.
[2025-05-31] MEDS: ALBUTEROL SULF 2.5 MG/0.5ML(0.5%) NEB SOLN NEB ONE (16:30)
[2025-05-31] MEDS: IPRATROPIUM BROM 0.5 MG/2.5ML INH SOL NEB ONE (16:30)
[2025-05-31 16:31] LABS: Hematocrit 40.5 % (36.0-46.0); Hemoglobin 13.9 g/dL (12.2-16.2); Mean Corpuscular Hemoglobin 29.9 pg (28.0-32.0); Mean Corpuscular Volume 87.3 fL (80.0-100.0); Nucleated Red Blood Cells % 0.0 %
[2025-05-31 16:43] LABS: Alanine Aminotransferase 18 U/L (7-40); Alkaline Phosphatase 75 U/L (46-116); Anion Gap 11 (5-15); BUN/Creatinine Ratio 10.1 (10.0-20.0); Calcium 10.0 mg/dL (8.7-10.4); Carbon Dioxide 24 mmol/L (20-31); Glucose 101 mg/dL (74-106); Sodium 145 mmol/L (136-145); Total Protein 7.5 g/dL (5.7-8.2)
[2025-05-31 16:44] LABS: Albumin 4.8 g/dL (3.2-4.8); Bilirubin, Total 0.3 mg/dL (0.2-1.0); Blood Urea Nitrogen 9 mg/dL (9-23); Chloride 110 mmol/L (98-107); Potassium 3.5 mmol/L (3.5-5.1)
[2025-05-31] MEDS ORDERED: PRED20TA2 PO (17:16)
[2025-05-31] MEDS ORDERED: AZITTAB2 PO (17:16)
[2025-05-31] MEDS: methylPREDNISolone SOD SUCC 125 MG/2 ML VL IM ONE (18:15)
[2025-05-31 18:55] VITALS: BP 104/73; PULSE 90; RESP 16; TEMP 98.3; O2SAT 98
== END 2025-05-31 18:59 | disposition home or self-care (01) ==
LOC: ER 15:32
DX: J40 Bronchitis, not specified as acute or chronic (principal); G89.29 Other chronic pain; Z98.890 Other specified postprocedural states; Z90.710 Acquired absence of both cervix and uterus; Z90.49 Acquired absence of other specified parts of digestive tract
CPT/HCPCS: 36415; 71045; 80053; 84484; 85025; 94640; 96372; 99284; J2919